=== PATIENT | male | born 1980 | race Caucasian/White ===

== ENCOUNTER 2017-02-26 22:37 | Emergency (ER) | payer MEDICAID ==
[~2017-02-26] VITALS: Ht 167.6 cm; Wt 75.5 kg
[2017-02-26 22:41] VITALS: Ht 167.6 cm; Wt 75.5 kg
[2017-02-27] MEDS ORDERED: NAPH15DR22 BOTH EYES (00:10)
[2017-02-27] MEDS ORDERED: CETI10CA PO (00:10)
[2017-02-27] MEDS ORDERED: FLUT9.9S NASAL (00:10)
[2017-02-27] MEDS ORDERED: BEN50 PO (00:10)
--- NOTE | 2017-02-27 00:18 | ERD ---
ER Documentation Chief Complaint Date/Time DATE: 02/27/17 TIME: 00:14 Chief Complaint colds symptoms, headache, HPI 26-year-old male presents to emergency department for complaints of runny nose nasal congestion bilateral eye itching and watery eyes 2 weeks. Patient has had this before, usually happen during changing of seasons. Patient has history of allergies. Patient took Hannah, with only mild relief. Patient does not have any fever or chills. Patient does not have any plan discharge from the nose. Patient does not have any dizziness. ROS All systems reviewed and are negative except as per history of present illness. Medications Home Meds Active Scripts Naphazoline-Pheniramine* (Visine-A*) 15 Ml Drops, 2 DROP BOTH EYES Q4H Y for RED EYES, #1 BOT Prov:IVY GARCIA BITE BLOCK MAKER 02/27/17 Diphenhydramine Hcl* (Benadryl*) 50 Mg Cap, 50 MG PO QHS Y for NASAL CONGESTION , #30 CAP Prov:IVY GARCIA NP 02/27/17 Cetirizine Hcl* (Zyrtec*) 10 Mg Capsule, 10 MG PO DAILY, #30 TAB.CHEW Prov:IVY GARCIA NP 02/27/17 Fluticasone Propionate (Flonase Allergy Relief) 9.9 Ml [place].susp, 1 SPRAY NASAL BID, #1 BOTTLE TO EACH NOSTRIL Prov:IVY GARCIA NP 02/27/17 Allergies Allergies: Coded Allergies: No Known Allergy (Unverified , 02/26/17) PMhx/Soc Medical and Surgical Hx: pt denies Medical Hx, pt denies Surgical Hx Hx Alcohol Use: No Hx Substance Use: No Hx Tobacco Use: No Smoking Status: Never smoker FmHx Family History: No coronary disease, No diabetes, No other Physical Exam Vitals Vital Signs Date Time Temp Pulse Resp B/P Pulse Ox O2 Delivery O2 Flow Rate FiO2 02/26/17 22:41 98.2 85 20 140/91 100 Physical Exam GENERAL: The patient is well developed and appropriate for usual state of health, in no apparent distress. HEENT: Atraumatic. Ears: Normal tympanic membrane, no erythema or bulging. No ear canal swelling. No ear discharge. Nose: Pale boggy with clear nasal discharge. Throat: oropharynx clear. No tonsillar swelling or tonsillar exudates. No lymphadenopathy. CHEST: Clear to auscultation bilaterally. There are no rales, wheezes or rhonchi. HEART: Regular rate and rhythm. No murmurs, clicks, rubs or gallops. No S3 or S4. ABDOMEN: Soft, nontender and nondistended. Good bowel sounds. No rebound or guarding. No gross peritonitis. No gross organomegaly or masses. No Padgett sign or McBurney point tenderness. BACK: No midline or flank tenderness. EXTREMITIES: Equal pulses bilaterally. There is no peripheral clubbing, cyanosis or edema. No focal swelling or erythema. Full range of motion. Grossly neurovascularly intact. NEURO: Alert and oriented. Cranial nerves 2-12 intact. Motor strength in all 4 extremities with 5/5 strength. Sensation grossly intact. Normal speech and gait. SKIN: There is no apparent rash or petechia. The skin is warm and dry. HEMATOLOGIC AND LYMPHATIC: There is no evidence of excessive bruising or lymphedema. No gross cervical, axillary, or inguinal lymphadenopathy. Results 24 hrs Current Medications Medications (Trade) Dose Ordered Sig/Shanell Route PRN Reason Start Time Stop Time Status Last Admin Dose Admin Diphenhydramine HCl (Benadryl) 50 mg ONCE ONCE PO 02/27/17 00:30 02/27/17 00:31 Benadryl was given here in emergency department, after treatment, verbalized feeling much better. Procedures/MDM Medical decision making: Patient's symptoms most likely consistent with allergic rhinitis and allergic conjunctivitis. No symptoms of acute bacterial infection. No symptoms of acute bacterial rhinosinusitis, or acute bacterial conjunctivitis. No symptoms of sepsis at this time. Patient appears well and is hemodynamically stable. Patient was given prescription for Naphcon ophthalmic solution, Zyrtec, Flonase, Benadryl, is advised to return to emergency department for any worsening symptoms, avoid allergens, patient was advised to follow-up with primary doctor in 1-2 days for reevaluation of symptoms. Departure Diagnosis: Primary Impression: Allergic conjunctivitis Laterality: bilateral Qualified Code: H10.13 - Allergic conjunctivitis, bilateral Additional Impression: Allergic rhinitis Allergic rhinitis trigger: unspecified Allergic rhinitis seasonality: unspecified seasonality Qualified Code: J30.9 - Allergic rhinitis, unspecified allergic rhinitis trigger, unspecified rhinitis seasonality Condition: Stable Patient Instructions: Conjunctivitis, Allergic, Allergic Rhinitis IVY GARCIA NP Feb 27, 2017 00:17
[2017-02-27] MEDS ORDERED: DIPHENHYDRAMINE 50 MG CAP PO ONE (00:30)
== END 2017-02-27 00:47 | disposition home or self-care (01) ==
LOC: FTE 22:37
DX: H10.13 Acute atopic conjunctivitis, bilateral (principal); J30.9 Allergic rhinitis, unspecified
CPT/HCPCS: Z7502; Z7610; 99283

== ENCOUNTER 2019-04-27 16:04 | Emergency (ER) | payer MEDICAID ==
[~2019-04-27] VITALS: Wt 80.0 kg
[~2019-04-27 16:04] MED LIST: BEN50 PO; CETI10CA PO; FLUT9.9S NASAL; NAPH15DR69 BOTH EYES
[2019-04-27] MEDS ORDERED: KETOROLAC 30 MG INJ IV STA (17:57)
[2019-04-27] MEDS ORDERED: IBUP-1542 PO (20:09)
--- NOTE | 2019-04-27 20:12 | ERD ---
ER Documentation Chief Complaint Chief Complaint ap on set last friday HPI 38-year-old male presents with left lower abdominal pain for last 2 days. Denies fevers, vomiting, chills, diarrhea, urinary complaints. Patient denies any previous abdominal conditions. Denies any flank pain. Patient has a history of silicosis diagnosed in 2016. ROS All systems reviewed and are negative except as per history of present illness. Medications Home Meds Active Scripts Ibuprofen* (Motrin*) 600 Mg Tab, 600 MG PO Q6, #20 TAB Prov:PRATIMA MORALES MD 04/27/19 Naphazoline-Pheniramine* (Visine-A*) 15 Ml Drops, 2 DROP BOTH EYES Q4H PRN for RED EYES, #1 BOT Prov:IVY GARCIA NP 02/27/17 Diphenhydramine Hcl* (Benadryl*) 50 Mg Cap, 50 MG PO QHS PRN for NASAL CONGESTION, #30 CAP Prov:IVY GARCIA NP 02/27/17 Cetirizine Hcl* (Zyrtec*) 10 Mg Capsule, 10 MG PO DAILY, #30 TAB.CHEW Prov:IVY GARCIA NP 02/27/17 Fluticasone Propionate (Flonase Allergy Relief) 9.9 Ml [place].susp, 1 SPRAY NASAL BID, #1 BOTTLE TO EACH NOSTRIL Prov:IVY GARCIA NP 02/27/17 Allergies Allergies: Coded Allergies: No Known Allergy (Unverified , 02/26/17) PMhx/Soc Medical and Surgical Hx: pt denies Medical Hx, pt denies Surgical Hx Hx Alcohol Use: Yes (OCCASSIONAL) Hx Substance Use: No Hx Tobacco Use: No Smoking Status: Never smoker FmHx Family History: No diabetes, No coronary disease, No other Physical Exam Vitals Vital Signs Date Temp Pulse Resp B/P (MAP) Pulse Ox O2 O2 Flow FiO2 Time Delivery Rate 04/27/19 98.6 79 18 120/88 98 Room Air 20:23 (99) 04/27/19 98.1 85 18 142/80 90 16:12 (100) Physical Exam Const: No acute distress Head: Atraumatic Eyes: Normal Conjunctiva ENT: Normal External Ears, Nose and Mouth. Neck: Full range of motion. No meningismus. Resp: Clear to auscultation bilaterally Cardio: Regular rate and rhythm, no murmurs Abd: Soft, mild left lower quadrant tenderness. No rebound. No tension McBurney's point no Padgett sign. Testicles nontender normal size and descended bilaterally. No appreciable hernias. Non distended. Normal bowel sounds Skin: No petechiae or rashes Back: No midline or flank tenderness Ext: No cyanosis, or edema Neur: Awake and alert Psych: Normal Mood and Affect Result Diagram: 04/27/19182004/27/191819 Results 24 hrs Laboratory Tests Test 04/27/19 18:20 04/27/19 18:21 Sodium Level 142 mmol/L Potassium Level 4.1 mmol/L Chloride Level 106 mmol/L Carbon Dioxide Level 26 mmol/L Anion Gap 10 Blood Urea Nitrogen 14 mg/dl Creatinine 0.86 mg/dl Est Glomerular Filtrat Rate mL/min > 60 mL/min Glucose Level 100 mg/dl Calcium Level 9.0 mg/dl Total Bilirubin 0.4 mg/dl Direct Bilirubin 0.00 mg/dl Indirect Bilirubin 0.4 mg/dl Aspartate Amino Transf (AST/SGOT) 38 IU/L Alanine Aminotransferase (ALT/SGPT) 37 IU/L Alkaline Phosphatase 100 IU/L Total Protein 7.9 g/dl Albumin 4.2 g/dl Globulin 3.70 g/dl Albumin/Globulin Ratio 1.13 Lipase 91 U/L White Blood Count 6.2 10^3/ul Red Blood Count 5.91 10^6/ul Hemoglobin 16.3 g/dl Hematocrit 49.4 % Mean Corpuscular Volume 83.6 fl Mean Corpuscular Hemoglobin 27.6 pg Mean Corpuscular Hemoglobin Concent 33.0 g/dl Red Cell Distribution Width 13.2 % Platelet Count 240 10^3/UL Mean Platelet Volume 8.5 fl Immature Granulocytes % 0.300 % Neutrophils % 65.3 % Lymphocytes % 20.5 % Monocytes % 7.1 % Eosinophils % 6.3 % Basophils % 0.5 % Nucleated Red Blood Cells % 0.0 /100WBC Immature Granulocytes # 0.020 10^3/ul Neutrophils # 4.1 10^3/ul Lymphocytes # 1.3 10^3/ul Monocytes # 0.4 10^3/ul Eosinophils # 0.4 10^3/ul Basophils # 0.0 10^3/ul Nucleated Red Blood Cells # 0.0 10^3/ul Urine Color YELLOW Urine Clarity CLEAR Urine pH 5.0 Urine Specific [place] 1.025 Urine Ketones NEGATIVE mg/dL Urine Nitrite NEGATIVE mg/dL Urine Bilirubin NEGATIVE mg/dL Urine Urobilinogen NEGATIVE mg/dL Urine Leukocyte Esterase NEGATIVE Adilson/ul Urine Hemoglobin NEGATIVE mg/dL Urine Glucose NEGATIVE mg/dL Urine Total Protein NEGATIVE mg/dl Current Medications Medications Dose Sig/Shanell Start Time Status Last (Trade) Ordered Route PRN Stop Time Admin Dose Reason Admin Ketorolac 30 mg ONCE STAT 04/27/19 DC 04/27/19 Tromethamine IV 17:57 18:48 (Toradol) 04/27/19 17:59 Procedures/MDM Patient was given Toradol 30 mill grams IV. CBC and metabolic panel normal. Urine is negative. CT abdomen pelvis shows findings consistent with silicosis in the lung windows but no acute findings in the abdomen and pelvis. Patient pain was controlled with Toradol and observation. Patient presents with left lower quadrant abdominal pain of uncertain etiology. He has no signs of joana endicitis, testicular torsion, abscess, obstruction, aortic disease, additional concerning signs or symptoms. We will treat with ibuprofen, further observation at home and return precautions. The patient was stable with no new complaints during the ER course. Clinically, there is no current evidence to suggest meningitis, sepsis, acute abdomen, pneumonia, stroke, acute coronary syndrome, pulmonary embolism, aortic dissection or any other emergent condition appearing to require further evaluation or hospitalization. Patient counseled regarding my diagnostic impression and care plan. Prior to discharge all questions answered. Pt agrees with treatment plan and understands strict return prec autions. Pt is instructed to follow up with primary care provider within 24-48 hours. Precautionary instructions provided including instructions to return to the ER if not improving or for any worsening or changing symptoms or concerns. Disclaimer: Inadvertent spelling and grammatical errors are likely due to EHR/dictation software use and do not reflect on the overall quality of patient care. Also, please note that the electronic time recorded on this note does not necessarily reflect the actual time of the patient encounter. Departure Diagnosis: Primary Impression: Abdominal pain Abdominal location: unspecified location Qualified Codes: R10.9 - Unspecified abdominal pain Condition: Stable Patient Instructions: Abdominal Pain Referrals: NO PRIMARY,CARE PHYSICIAN (PCP) Additional Instructions: Examines normal hoy ( nada nuevo) . Cheque otro vez con elizalde doctor primario en el proximo sanders or regresa para mas o nueva simptomas. PRATIMA MORALES MD April 27, 2019 20:12
[2019-04-27 20:23] VITALS: BP 120/88; PULSE 79; RESP 18
== END 2019-04-27 20:24 | disposition home or self-care (01) ==
LOC: FTE 16:04
DX: R10.32 Left lower quadrant pain (principal)
CPT/HCPCS: 36415; 74176; 80053; 81003; 83690; 85025; 96374; J1885; Z7502

== ENCOUNTER 2019-06-23 06:26 | Emergency (ER) | payer MEDICAID ==
[~2019-06-23] VITALS: Ht 170.2 cm; Wt 74.5 kg
[~2019-06-23 06:26] MED LIST changes: +ACET325T33 PO; +IBUP-1542 PO; +ONDA4TAB14 PO
[2019-06-23 06:28] VITALS: BP 129/84; PULSE 80; RESP 22; Ht 170.2 cm; Wt 74.5 kg
[2019-06-23] MEDS ORDERED: ONDANSETRON 4 MG INJ IV STA (06:51)
[2019-06-23] MEDS ORDERED: SOD CHLORIDE 0.9% 1,000 ML IV STA (06:51)
[2019-06-23] MEDS ORDERED: KETOROLAC 30 MG INJ IV STA (06:51)
[2019-06-23] MEDS ORDERED: SOD CHLORIDE 0.9% 100 ML ONE (07:38)
[2019-06-23] MEDS ORDERED: IOHEXOL 300MG/ML 150 ML BTL ONE (07:38)
--- NOTE | 2019-06-23 13:46 | ERD ---
ER Documentation Chief Complaint Chief Complaint generalized abdominal pain x 3 days, vomitted twice since yesterday HPI 38-year-old male presenting with generalized abdominal pain x3 days. Patient vomited twice in the last 2 days. Normal urination bowel movement. Took Tylenol last night. Has no fevers. Denies chest pain or shortness of breath. No sick contacts. Denies medical problems. NKDA. Surgical history lung biopsy which was normal. Social history denies ROS All systems reviewed and are negative except as per history of present illness. Medications Home Meds Active Scripts Ondansetron (Ondansetron Odt) 4 Mg Tab.rapdis, 4 MG PO Q6H PRN for NAUSEA AND/OR VOMITING, #10 TAB Prov:JUANJO DONALD PA-C 06/23/19 Acetaminophen* (Tylenol*) 325 Mg Tablet, 2 TAB PO Q6 PRN for PAIN AND OR ELEVATED TEMP, #20 TAB Prov:JUANJO DONALD PA-C 06/23/19 Ibuprofen* (Motrin*) 600 Mg Tab, 600 MG PO Q6, #20 TAB Prov:PRATIMA MORALES MD 04/27/19 Naphazoline-Pheniramine* (Visine-A*) 15 Ml Drops, 2 DROP BOTH EYES Q4H PRN for RED EYES, #1 BOT Prov:IVY GARCIA NP 02/27/17 Diphenhydramine Hcl* (Benadryl*) 50 Mg Cap, 50 MG PO QHS PRN for NASAL CONGESTION, #30 CAP Prov:IVY GARCIA NP 02/27/17 Cetirizine Hcl* (Zyrtec*) 10 Mg Capsule, 10 MG PO DAILY, #30 TAB.CHEW Prov:IVY GARCIA NP 02/27/17 Fluticasone Propionate (Flonase Allergy Relief) 9.9 Ml [place].susp, 1 SPRAY NASAL BID, #1 BOTTLE TO EACH NOSTRIL Prov:IVY GARCIA NP 02/27/17 Allergies Allergies: Coded Allergies: No Known Allergy (Unverified , 02/26/17) PMhx/Soc Medical and Surgical Hx: pt denies Medical Hx History of Surgery: Yes (lung biopsy) Hx Alcohol Use: Yes (OCCASSIONAL) Hx Substance Use: No Hx Tobacco Use: No Smoking Status: Never smoker FmHx Family History: No diabetes, No coronary disease, No other Physical Exam Vitals Vital Signs Date Temp Pulse Resp B/P (MAP) Pulse Ox O2 O2 Flow FiO2 Time Delivery Rate 06/23/19 97.6 80 22 129/84 95 06:28 (99) Physical Exam GENERAL: The patient is well-appearing, well-nourished, in no acute distress HEENT: Atraumatic. Conjunctivae are pink. Pupils equal, round, and reactive to light. There is no scleral icterus. Tympanic membranes clear bilaterally. Oropharynx clear. CHEST: Clear to auscultation bilaterally. There are no rales, wheezes or rhonchi. HEART: Regular rate and rhythm. No murmurs, clicks, rubs or gallops. ABDOMEN:Soft, nontender and nondistended. Good bowel sounds. No rebound or guarding. No gross peritonitis. No gross organomegaly or masses. Result Diagram: 06/23/19 0701 06/23/19 0701 Results 24 hrs Laboratory Tests Test 06/23/19 07:01 White Blood Count 9.4 10^3/ul Red Blood Count 5.80 10^6/ul Hemoglobin 16.3 g/dl Hematocrit 48.6 % Mean Corpuscular Volume 83.8 fl Mean Corpuscular Hemoglobin 28.1 pg Mean Corpuscular Hemoglobin Concent 33.5 g/dl Red Cell Distribution Width 13.6 % Platelet Count 221 10^3/UL Mean Platelet Volume 8.6 fl Immature Granulocytes % 0.200 % Neutrophils % 86.0 % Lymphocytes % 6.6 % Monocytes % 5.2 % Eosinophils % 1.8 % Basophils % 0.2 % Nucleated Red Blood Cells % 0.0 /100WBC Immature Granulocytes # 0.020 10^3/ul Neutrophils # 8.0 10^3/ul Lymphocytes # 0.6 10^3/ul Monocytes # 0.5 10^3/ul Eosinophils # 0.2 10^3/ul Basophils # 0.0 10^3/ul Nucleated Red Blood Cells # 0.0 10^3/ul Urine Color YELLOW Urine Clarity CLEAR Urine pH 5.0 Urine Specific [place] 1.029 Urine Ketones NEGATIVE mg/dL Urine Nitrite NEGATIVE mg/dL Urine Bilirubin NEGATIVE mg/dL Urine Urobilinogen 2+ mg/dL Urine Leukocyte Esterase NEGATIVE Adilson/ul Urine Microscopic RBC 0 /HPF Urine Microscopic WBC 0 /HPF Urine Mucus FEW /HPF Urine Hemoglobin NEGATIVE mg/dL Urine Glucose NEGATIVE mg/dL Urine Total Protein 1+ mg/dl Sodium Level 141 mmol/L Potassium Level 3.7 mmol/L Chloride Level 107 mmol/L Carbon Dioxide Level 24 mmol/L Anion Gap 10 Blood Urea Nitrogen 14 mg/dl Creatinine 0.86 mg/dl Est Glomerular Filtrat Rate mL/min > 60 mL/min Glucose Level 108 mg/dl Calcium Level 9.2 mg/dl Total Bilirubin 0.5 mg/dl Direct Bilirubin 0.00 mg/dl Indirect Bilirubin 0.5 mg/dl Aspartate Amino Transf (AST/SGOT) 38 IU/L Alanine Aminotransferase (ALT/SGPT) 37 IU/L Alkaline Phosphatase 110 IU/L Total Protein 7.3 g/dl Albumin 4.1 g/dl Globulin 3.20 g/dl Albumin/Globulin Ratio 1.28 Lipase 76 U/L Current Medications Medications Dose Sig/Shanell Start Time Status Last (Trade) Ordered Route PRN Stop Time Admin Dose Reason Admin Sodium 1,000 ml @ Q1H STAT 06/23/19 DC 06/23/19 Chloride 1,000 mls/hr IV 06:51 07:02 06/23/19 07:50 Ondansetron 4 mg ONCE STAT 06/23/19 DC 06/23/19 HCl (Zofran IV 06:51 07:02 Inj) 06/23/19 06:53 Ketorolac 30 mg ONCE STAT 06/23/19 DC 06/23/19 Tromethamine IV 06:51 07:01 (Toradol) 06/23/19 06:53 IV Flush 10 ml STK-MED 06/23/19 DC 06/23/19 (NS 10 ml) ONCE .ROUTE 07:38 08:01 06/23/19 07:39 Sodium 100 ml @ ud STK-MED 06/23/19 DC 06/23/19 Chloride ONCE .ROUTE 07:38 08:01 06/23/19 07:39 Iohexol 150 ml STK-MED 06/23/19 DC 06/23/19 (Omnipaque ONCE .ROUTE 07:38 08:01 300mg/ ml) 06/23/19 07:39 Procedures/MDM DIAGNOSTIC IMAGING REPORT Patient: ZOHREH OLEARY : 1980 Age: 38 Sex: M MR #: [id number] DOS: 06/23/19 0651 Ordering MD: CHOCO DONALD PA-C Location: [facility] Room/Bed: PROCEDURE: CT Abdomen and Pelvis with contrast. CLINICAL INDICATION: Abdomen and pelvis pain. TECHNIQUE: CT scan of the abdomen and pelvis with contrast was performed. The patient was scanned following the uncomplicated intravenous administration of 100 ml of Omnipaque-300. Coronal and sagittal reformatted images were obtained from the axial source images. Images were reviewed on a high-resolution PACS workstation. Total exam DLP is 538 mGy-cm. CTDIvol is 9 mGy. One or more of the following dose reduction techniques were used: Automated exposure control, adjustment of the mA and/or kV according to patient size, use of iterative reconstruction technique. DICOM images are available. COMPARISON: 04/27/2019 FINDINGS: There are multiple stable to slightly worse sub-centimeter miliary nodules throughout the incompletely visualized bilateral lung bases. There is significant subpleural nodularity. There is likely incompletely visualized bilateral inferior hilar lymphadenopathy with associated coarse calcifications. There may be incompletely visualized subcarinal lymphadenopathy measuring up to 2.2 cm. There is no pleural effusion. The liver is normal in size and attenuation. There is no focal hepatic lesion. The gallbladder and bile ducts are normal. The spleen is normal in size. There is no focal splenic lesion. Both adrenals are normal with no enlargement or mass. The pancreas is unremarkable with no mass or evidence of pancreatitis. Both kidneys demonstrate normal contrast enhancement. there are several hypodense lesions throughout the right kidney which are too small to further characterize. The abdominal aorta is not dilated. There are mild vascular calcifications. There is no retroperitoneal lymphadenopathy or mass. There is no pelvic lymphadenopathy or mass. The bladder and distal ureters are normal. The periappendiceal region is unremarkable with no evidence of appendicitis. The bowel and mesentery are normal. There is no free fluid or free gas. The osseous structures are unremarkable with no fracture or lytic lesion. IMPRESSION: 1. There are multiple stable to slightly worse sub-centimeter miliary nodules throughout the incompletely visualized bilateral lung bases. There is significant subpleural nodularity. There is likely incompletely visualized bilateral inferior hilar lymphadenopathy with associated coarse calcifications. There may be incompletely visualized subcarinal lymphadenopathy measuring up to 2.2 cm. Granulomatous disease, metastatic disease, miliary tuberculosis, fungal infection, are all differential considerations. CT chest is recommended for further evaluation. 2. No bowel obstruction. 3. No pneumoperitoneum. 4. Mild vascular calcifications. ER Course: Blood work within normal limits. Urine negative. MDM: 38-year-old male presenting with generalized abdominal pain x3 days. I have low suspicion for acute abdominal emergency. I have low suspicion for electrolyte abnormality or blood work insufficiency. I have low suspicion for sepsis. I do not feel there is indication for further blood work or imaging. Patient likely has viral syndrome will be discharged with supportive medications. Patient is told symptoms change or worsen to return immediately to the ER. All questions answered at discharge Departure Diagnosis: Primary Impression: Abdominal pain Condition: Stable Patient Instructions: Abdominal Pain Referrals: [facility] YOU HAVE RECEIVED A MEDICAL SCREENING EXAM AND THE RESULTS INDICATE THAT YOU DO NOT HAVE A CONDITION THAT REQUIRES URGENT TREATMENT IN THE EMERGENCY DEPARTMENT. FURTHER EVALUATION AND TREATMENT OF YOUR CONDITION CAN WAIT UNTIL YOU ARE SEEN IN YOUR DOCTORS OFFICE WITHIN THE NEXT 1-2 DAYS. IT IS YOUR RESPONSIBILITY TO MAKE AN APPOINTMENT FOR FOLOW-UP CARE. IF YOU HAVE A PRIMARY DOCTOR --you should call your primary doctor and schedule an appointment IF YOU DO NOT HAVE A PRIMARY DOCTOR YOU CAN CALL OUR PHYSICIAN REFERRAL HOTLINE AT IF YOU CAN NOT AFFORD TO SEE A PHYSICIAN YOU CAN CHOSE FROM THE FOLLOWING [facility] [address] [facility]. [facility] [address] [facility] [address] [facility] [address] [facility]. [facility] [address] [facility]. [facility]. [address] Additional Instructions: Call your primary care doctor TOMORROW for an appointment during the next 1-2 days.See the doctor sooner or return here if your condition worsens before your appointment time. JUANJO DONALD PA-C Jun 23, 2019 13:45
== END 2019-06-23 09:14 | disposition home or self-care (01) ==
LOC: FTE 06:26
DX: R10.84 Generalized abdominal pain (principal); R11.10 Vomiting, unspecified
CPT/HCPCS: 36415; 74177; 80053; 81001; 83690; 85025; 96361; 96374; 96375; J1885; J2405; J7030; Q9967; Z7502; Z7610